=== PATIENT | female | born 1980 | race African-American/Black ===

== ENCOUNTER 2018-11-04 14:16 | Emergency (ER) | payer MEDICAID ==
[~2018-11-04] VITALS: Ht 162.6 cm; Wt 150.0 kg
[2018-11-04] MEDS ORDERED: PANTOPRAZOLE SODIUM 40 MG/VIAL IV STA (16:17)
[2018-11-04] MEDS ORDERED: SODIUM CHLORIDE 0.9% 1,000 ML IV ONE (16:17)
[2018-11-04 16:45] LABS: BASOPHILS % 1.1 % (0.0-2.0); EOSINOPHILS % 2.4 % (0.0-5.0); HEMATOCRIT. 40.1 % (36.0-48.0); HEMOGLOBIN. 13.3 g/dL (12.0-16.0); LYMPHOCYTES % 38.3 % (20.0-50.0); MEAN CORPUSCULAR HEMOGLOBIN 28.5 pg (28.0-32.0); MEAN CORPUSCULAR VOLUME 86.1 fL (81.0-99.0); MEAN PLATELET VOLUME 9.5 fl (7.4-10.4); MONOCYTES % 9.1 % (2.0-8.0); NEUTROPHILS % 49.1 % (40.0-76.0); PLATELET 228 x1000/uL (130-400); RED BLOOD CELL COUNT 4.66 mill/uL (4.2-5.4); RED CELL DISTRIBUTION WIDTH 13.8 % (11.6-14.6)
[2018-11-04 16:50] LABS: CHLORIDE 108 mEq/L (98-107)
[2018-11-04 16:51] LABS: CLARITY URINE CLEAR (CLEAR); COLOR URINE YELLOW (YELLOW); KETONES URINE TRACE (NEGATIVE); LEUKOCYTE ESTERASE URINE NEGATIVE (NEGATIVE); NITRITE URINE NEGATIVE (NEGATIVE); OCCULT BLOOD URINE NEGATIVE (NEGATIVE); PROTEIN URINE NEGATIVE (NEGATIVE); SPECIFIC GRAVITY URINE 1.027 (1.005-1.030); UROBILINOGEN URINE 0.2 E.U./dL (0.2-1.0)
[2018-11-04 18:40] VITALS: BP 144/81
== END 2018-11-04 19:25 | disposition home or self-care (01) ==
LOC: ER 14:16
DX: K62.5 Hemorrhage of anus and rectum (principal)
CPT/HCPCS: 36415; 71045; 80053; 81003; 81025; 83690; 85025; 85610; 86850; 86900; 86901; 96374; 99284; J7030

== ENCOUNTER 2025-03-23 17:59 | Inpatient (IN) | payer MEDICAID ==
[~2025-03-23] VITALS: Ht 167.6 cm; Wt 115.8 kg
[2025-03-23 18:03] VITALS: O2SAT 98
[2025-03-23 20:15] LABS: BASOPHILS % 0.7 % (0.0-2.0); EOSINOPHILS % 1.3 % (0.0-5.0); HEMATOCRIT. 41.7 % (36.0-48.0); HEMOGLOBIN. 13.8 g/dL (12.0-16.0); LYMPHOCYTES % 29.1 % (20.0-50.0); MEAN PLATELET VOLUME 9.4 fl (7.4-10.4); MONOCYTES % 8.7 % (2.0-8.0); NEUTROPHILS % 60.2 % (40.0-76.0); PLATELET 249 x1000/uL (130-400); RED BLOOD CELL COUNT 4.87 mill/uL (4.2-5.4); RED CELL DISTRIBUTION WIDTH 13.4 % (11.6-14.6)
[2025-03-23 20:28] LABS: TROPONIN I HIGH SENSITIVITY < 4 ng/L (3.0-34)
[2025-03-23 20:29] LABS: CREATININE 0.9 mg/dL (0.6-1.0); UREA NITROGEN BLOOD 16 mg/dL (9-23)
[2025-03-23 20:31] LABS: ASPARTATE AMINOTRANSFERASE 10 IU/L (<34); BILIRUBIN DIRECT 0.1 mg/dL (<=3.0); BILIRUBIN TOTAL 0.6 mg/dL (0.1-1.0); PROTEIN TOTAL 7.2 g/dL (6.0-8.3)
[2025-03-23 23:23] VITALS: BP 112/85; PULSE 104; RESP 20; TEMP 36.5292
[2025-03-24] VITALS: BP 110/61; PULSE 104; RESP 20; TEMP 36.6; O2SAT 97
[2025-03-24] MEDS ORDERED: ACETAMINOPHEN 325MG TABLET PO PRN ×2 (00:15→13:45)
[2025-03-24] MEDS ORDERED: CLONIDINE 0.1MG TABLET PO PRN (00:15)
[2025-03-24 03:51] LABS: BASOPHILS % 1.0 % (0.0-2.0); EOSINOPHILS % 1.3 % (0.0-5.0); HEMATOCRIT. 38.2 % (36.0-48.0); HEMOGLOBIN. 12.7 g/dL (12.0-16.0); LYMPHOCYTES % 35.3 % (20.0-50.0); MEAN PLATELET VOLUME 9.0 fl (7.4-10.4); MONOCYTES % 8.7 % (2.0-8.0); NEUTROPHILS % 53.7 % (40.0-76.0); PLATELET 217 x1000/uL (130-400); RED BLOOD CELL COUNT 4.47 mill/uL (4.2-5.4); RED CELL DISTRIBUTION WIDTH 13.6 % (11.6-14.6)
[2025-03-24 04:00] VITALS: BP 129/68; RESP 20; TEMP 36.7; O2SAT 98
[2025-03-24 04:05] LABS: TRIGLYCERIDE 120 mg/dL (0-150)
[2025-03-24 04:06] LABS: LDL CHOLESTEROL 128 mg/dL (5-100); TROPONIN I HIGH SENSITIVITY < 4 ng/L (3.0-34)
[2025-03-24 08:00] VITALS: BP 110/66; PULSE 91; RESP 20; TEMP 36.6; O2SAT 97
[2025-03-24] MEDS: ASPIRIN 81MG TABLET PO SCH (09:05)
[2025-03-24] MEDS: METOPROLOL TARTRATE 50MG TABLET PO SCH (09:12)
[2025-03-24] MEDS: ENOXAPARIN 30MG/0.3ML SYR SUBCUT SCH (09:14)
[2025-03-24 12:10] VITALS: BP 98/52; PULSE 82; RESP 18; TEMP 36.6; O2SAT 100
[2025-03-24] MEDS ORDERED: GABA-1180 PO (13:32)
[2025-03-24] MEDS ORDERED: CYCL10TA21 PO (13:32)
[2025-03-24] MEDS ORDERED: ASCO500T20 PO (13:32)
[2025-03-24] MEDS ORDERED: ONDANSETRON HCL 4MG/2ML INJ IV PRN ×2 (13:45)
[2025-03-24] MEDS: PANTOPRAZOLE SODIUM 40 MG/VIAL IV SCH (15:38)
[2025-03-24] MEDS: COLCHICINE 0.6MG TABLET PO SCH (15:39)
[2025-03-24] MEDS: ASCORBIC ACID 500 MG TABLET PO SCH (15:39)
[2025-03-24] MEDS: IBUPROFEN 800MG TABLET PO SCH (15:41)
[2025-03-24 16:10] VITALS: BP 98/40; PULSE 88; RESP 20; TEMP 36.6; O2SAT 100
[2025-03-24 20:00] VITALS: BP 110/75; PULSE 83; RESP 18; TEMP 36.2; O2SAT 99
[2025-03-24] MEDS: GABAPENTIN 300MG CAPSULE PO SCH (21:43)
[2025-03-24] MEDS: CYCLOBENZAPRINE 10MG TABLET PO SCH (21:43)
[2025-03-24] MEDS: ATORVASTATIN CALCIUM 40MG TABLET PO SCH (21:44)
[2025-03-25] VITALS: BP 103/54; PULSE 89; RESP 18; TEMP 36.7; O2SAT 99
[2025-03-25 01:25] LABS: CLARITY URINE CLEAR (CLEAR); COLOR URINE YELLOW (YELLOW); GLUCOSE URINE NEGATIVE (NEGATIVE); KETONES URINE NEGATIVE (NEGATIVE); LEUKOCYTE ESTERASE URINE NEGATIVE (NEGATIVE); NITRITE URINE NEGATIVE (NEGATIVE); OCCULT BLOOD URINE NEGATIVE (NEGATIVE); PH URINE 5.5 (4.5-8.0); PROTEIN URINE NEGATIVE (NEGATIVE); SPECIFIC GRAVITY URINE 1.015 (1.005-1.030); UROBILINOGEN URINE 0.2 E.U./dL (0.2-1.0)
[2025-03-25 01:55] LABS: *AMPHETAMINES SCREEN URINE NEGATIVE (NEGATIVE); *BENZODIAZEPINES SCREEN URINE NEGATIVE (NEGATIVE)
[2025-03-25 01:56] LABS: *BARBITURATES SCREEN URINE NEGATIVE (NEGATIVE); *COCAINE SCREEN URINE NEGATIVE (NEGATIVE); CANNABINOID URINE SCREEN NEGATIVE (NEGATIVE); ECSTASY MDMA SCREEN URINE NEGATIVE (NEGATIVE); METHADONE URINE SCREEN NEGATIVE (NEGATIVE); OPIATES URINE SCREEN NEGATIVE (NEGATIVE); PHENCYCLIDINE URINE SCREEN NEGATIVE (NEGATIVE)
[2025-03-25 04:00] VITALS: BP 103/62; PULSE 80; RESP 18; TEMP 36.3; O2SAT 99
[2025-03-25 08:00] VITALS: BP 138/89; PULSE 84; RESP 20; TEMP 36.3; O2SAT 100
[2025-03-25 08:51] LABS: BASOPHILS % 0.3 % (0.0-2.0); EOSINOPHILS % 2.2 % (0.0-5.0); HEMATOCRIT. 38.6 % (36.0-48.0); HEMOGLOBIN. 12.8 g/dL (12.0-16.0); LYMPHOCYTES % 45.1 % (20.0-50.0); MEAN PLATELET VOLUME 9.7 fl (7.4-10.4); MONOCYTES % 10.5 % (2.0-8.0); NEUTROPHILS % 41.9 % (40.0-76.0); PLATELET 227 x1000/uL (130-400); RED BLOOD CELL COUNT 4.49 mill/uL (4.2-5.4); RED CELL DISTRIBUTION WIDTH 13.4 % (11.6-14.6)
[2025-03-25] MEDS ORDERED: ASPIRIN 81MG TABLET PO SCH (09:00)
[2025-03-25 09:10] LABS: CREATININE 0.9 mg/dL (0.6-1.0); UREA NITROGEN BLOOD 14 mg/dL (9-23)
[2025-03-25 09:21] LABS: ERYTHROCYTE SEDIMENTATION RATE 37 mm/hr (0-20)
[2025-03-25] MEDS ORDERED: COLC0.6C3 MT (11:20)
[2025-03-25] MEDS ORDERED: FAMO-287 MT (11:20)
[2025-03-25] MEDS ORDERED: ATOR40TA70 MT (11:20)
[2025-03-25] MEDS ORDERED: IBUP-1525 MT (11:20)
[2025-03-25 12:00] VITALS: BP 127/77; PULSE 87; RESP 18; TEMP 37; O2SAT 95
[2025-03-25 13:20] VITALS: BP 122/77; PULSE 87; RESP 18; TEMP 98.1
== END 2025-03-25 17:29 | disposition home or self-care (01) | DRG 198 ==
LOC: ER 17:59 → 8WST 21:32 → EDBEDREQTM 21:36 → EDBEDREQ 21:36 → ENRESERV 22:10
PROVIDERS: ADMIT Internal Medicine; ATTEND Internal Medicine
DX: I20.0 Unstable angina (principal); I31.9 Disease of pericardium, unspecified
CPT/HCPCS: 36415; 71045; 80048; 80061; 80076; 80305; 81003; 83036; 84484; 85025; 85379; 85651; 93005; 93308; 99285; J1650; J2470